=== PATIENT | female | born 1950 ===

== ENCOUNTER 2023-08-11 13:09 | Outpatient (AMB) | payer BC, SELFPAY ==
--- NOTE | 2023-08-11 13:38 | MHC.OFFVIS ---
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 HPI: This 72-year-old female developed acute right-sided back pain in February 2023. Sometimes it radiated down her right leg. An x-ray was done which led to an MRI which led to an oncology consult for suspicion of multiple myeloma. She even underwent a bone marrow biopsy which came back negative. Eventually, she was diagnosed with arthritis. In the meantime her symptoms have improved. She has not use lidocaine patches in 2 days. She denies radiation down her legs. She can sleep without difficulties. She scheduled to undergo physical therapy The following conservative treatment options were tried without success antiinflammatories, tylenol, physician guided home exercise plan, cortisone shots PMH: [] Medications: [] Allergies: [] Social history: [] Physical Exam: She is asymptomatic. No neurological deficits. Radiological Studies: MRI done at [facility] shows mild degenerative disc disease, mild central canal stenosis and no nerve root compression. A standing x-ray shows a mild lumbar curvature and no signs of instability. Impression/Plan: This patient developed an acute lumbago without a significant cause. Imaging reviews no surgical cause for her symptoms. In fact, her symptom is improving and I expect a full recovery over time. I would advise against physical therapy at this time. Thank you for allowing me to participate in your patients care. total time spent was 50 minutes in counseling ,coordination of plan, personal review of imaging, surgical decision making and subsequent plan Bola Perez MD, PhD [facility] Trained Neurosurgeon Director, [facility] Coding Level of Care Code New Pt Level 4 (98643) Diagnoses Back pain without radiation M54.9
== END 2023-08-11 14:19 | disposition home or self-care (01) ==
PROVIDERS: Visit Provider Neurological Surgery
DX: M54.9 Dorsalgia, unspecified (principal)
CPT/HCPCS: 99204

== ENCOUNTER → 2023-08-11 13:09 | Outpatient (BNVA) | payer BC, SELFPAY | PROVIDERS: Visit Provider Neurological Surgery ==